=== PATIENT | male | born 1985 | race Two or more races ===

== ENCOUNTER 2021-02-24 02:50 | Outpatient (CLI) | payer OTHER | END 2021-02-24 13:46 | disposition home or self-care (01) | LOC: LAB 02:50 | DX: Z20.818 Contact with and (suspected) exposure to other bacterial communicable diseases (principal); Z20.828 Contact with and (suspected) exposure to other viral communicable diseases ==

== ENCOUNTER 2024-03-04 12:31 | Outpatient (CLI) | payer OTHER | END 2024-03-04 12:37 | disposition home or self-care (01) | LOC: RAD 12:31 | PROVIDERS: ATTEND Orthopaedic Surgery | DX: S92.012A Displaced fracture of body of left calcaneus, initial encounter for closed fracture (principal) ==

== ENCOUNTER 2024-12-17 09:05 | Outpatient (CLI) | payer OTHER | END 2024-12-17 09:09 | disposition home or self-care (01) | LOC: RAD 09:05 | PROVIDERS: ATTEND Orthopaedic Surgery | DX: S92.012A Displaced fracture of body of left calcaneus, initial encounter for closed fracture (principal) ==